=== PATIENT | male | born 2005 | race African-American/Black ===

== ENCOUNTER 2025-01-31 19:01 | Emergency (ER) | payer OTHER ==
[~2025-01-31] VITALS: Ht 180.3 cm; Wt 72.6 kg
[2025-01-31 19:31] VITALS: PULSE 100; RESP 20; TEMP 98
[2025-01-31 21:20] VITALS: BP 107/54; PULSE 62; RESP 18; O2SAT 99
== END 2025-01-31 21:21 | disposition home or self-care (01) ==
LOC: ER 19:44
DX: S90.821A Blister (nonthermal), right foot, initial encounter (principal); S90.31XA Contusion of right foot, initial encounter; Y93.01 Activity, walking, marching and hiking; Y92.488 Other paved roadways as the place of occurrence of the external cause
CPT/HCPCS: 99283